=== PATIENT | male | born 1975 | race Caucasian/White ===

== ENCOUNTER 2016-11-07 08:35 | Emergency (ER) | payer OTHER ==
[~2016-11-07] VITALS: Ht 177.8 cm; Wt 96.9 kg
[2016-11-07 08:48] VITALS: TEMP 36.4; Ht 177.8 cm; Wt 96.9 kg
[2016-11-07] MEDS ORDERED: SODIUM CHLORIDE 0.9% 1000ML 1,000 ML IV STA (09:33)
[2016-11-07 09:34] LABS: BASO % 0.4 %; BASO ABS # 0.02 K/uL (0-0.2); COMPLETE YES; EOS % 4.1 %; IG% 0.4 %; LYMPH % 31.4 %; LYMPH ABS # 1.74 K/uL (1.2-3.4); MEAN CELL VOLUME 90.6 fL (80-100); MEAN CORPUSCULAR HEMOGLOBIN 32.3 pg (25-34); MEAN CORPUSCULAR HGB CONC 35.7 g/dl (32-36); MEAN PLATELET VOLUME 9.1 fL (7.4-10.4); MONO % 8.1 %; NEUT % 55.6 %; PLATELET COUNT 220 K/uL (130-400); RED BLOOD COUNT 5.08 M/uL (4.7-6.1); WHITE BLOOD COUNT 5.55 K/uL (4.8-10.8)
[2016-11-07 09:50] LABS: BUN/CREATININE RATIO 13.4 (10-20); CALCIUM 9.6 mg/dl (8.5-10.1); CREATININE 1.2 mg/dl (0.60-1.40); POTASSIUM 3.7 mmol/L (3.5-5.1)
[2016-11-07 09:53] LABS: ALB/GLOB RATIO 1.1 (0.9-2)
--- NOTE | 2016-11-07 10:05 | DIAGNOSTIC IMAGING REPORT ---
CHEST ONE VIEW PORTABLE HISTORY: epigastric pain, short of breath. COMPARISON: None. FINDINGS: The lungs are clear. Cardiac silhouette is normal in size. No pleural effusions. No pneumothorax. Postoperative changes within the right shoulder. IMPRESSION: No acute process. Electronically signed by: Steven Carrero M.D. 11/07/2016 10:03 AM Dictated Date/Time: 11/07/2016 10:02 AM
[2016-11-07 10:27] LABS: URINE APPEARANCE CLEAR (CLEAR); URINE BILIRUBIN NEG (NEG); URINE COLOR YELLOW; URINE NITRITE NEG (NEG); URINE PH 7.5 (4.5-7.5); URINE SPECIFIC GRAVITY 1.019 (1.000-1.030); UROBILINOGEN NEG (NEG); ZZUR CULT IF INDIC CLEAN CATCH NO
[2016-11-07 10:35] LABS: MANUAL MICROSCOPIC REQUIRED? NO; REVIEW REQ? NO
--- NOTE | 2016-11-07 10:51 | DIAGNOSTIC IMAGING REPORT ---
GALLBLADDER-ABD LIMITED CLINICAL HISTORY: 41 years-old Male presenting with epigastric and RUQ pain, eval GB. TECHNIQUE: Real-time grayscale and limited color Doppler ultrasound imaging of the abdomen limited to the right upper quadrant was performed. COMPARISON: None. FINDINGS: Pancreas: Visualized portions of the pancreatic head and body normal. Liver: Mildly hyperechogenic parenchyma, although the right hemidiaphragm remains visible, likely indicating mild steatosis. The liver measures 17.4 cm in maximal sagittal dimension. No sonographic evidence of hepatic mass. Main portal vein patent with normal directional flow. Biliary: No intrahepatic biliary ductal dilatation. Common bile duct measures up to 2 mm in diameter. Gallbladder: No evidence of gallstones, gallbladder wall thickening, gallbladder distention, or pericholecystic fluid or inflammatory change. Right kidney: Normal in appearance and size, measuring 9.8 cm. No hydronephrosis. Ascites: None. IMPRESSION: 1. No evidence of cholelithiasis or biliary duct dilatation. 2. Suggestion of mild hepatic steatosis. Electronically signed by: Federico Rodriguez M.D. 11/07/2016 10:49 AM Dictated Date/Time: 11/07/2016 10:48 AM
[2016-11-07] MEDS ORDERED: MoRPHine SULFATE 4 MG/ML 1 ML CARP\\VIAL IV STA (11:06)
--- NOTE | 2016-11-07 11:13 | EMERGENCY ROOM VISIT NOTE ---
History First contact with patient: 09:23 Chief Complaint: ABDOMINAL PAIN Stated Complaint: UPPER ABD PAIN GOING IN TO BACK Nursing Triage Summary: Pt presents with epigastric pain through to back. Denies n/v/d. Pt states pain began Wed night, has been constant and is worse when up walking around. History of Present Illness The patient is a 41 year old male who presents to the Emergency Room with complaints of epigastric pain that came on gradually 2 days ago. Patient states that the pain has been constant, is worse movement, better with rest, radiates into his back and occasionally up into his chest, currently rates as 3/ 10, states at its worse is 9/10. The pain as a sharp burning pain. The pain is not made better or worse with eating. He denies any associated nausea, vomiting, shortness of breath, dizziness or passing out, diarrhea or constipation, blood in stool, urinary complaints, fevers/chills or recent illness. He has never had this problem before. He has not tried any medications or the pain. Review of Systems A complete 10 point review of systems was reviewed with the patient with pertinent positives and negatives as per history of present illness. All else were negative. Past Medical/Surgical History No significant past medical or surgical history Family History Patient reports family history of gallbladder disease, heart disease, hypertension, diabetes Social History Smoking Status: Current Every Day Smoker Alcohol Use: occasionally Drug Use: none Occupation Status: employed Current/Historical Medications Scheduled Ranitidine (Zantac), 1 TAB PO BID Allergies Coded Allergies: Erythromycin (Unverified Allergy, Intermediate, SWELLING, HIVES, RASH, ) Physical Exam Vital Signs Date Time Temp Pulse Resp B/P (MAP) Pulse Ox O2 Delivery O2 Flow Rate FiO2 11/07/16 12:52 76 18 127/94 97 11/07/16 12:05 76 18 140/88 97 Room Air 11/07/16 11:24 72 18 136/93 Room Air 11/07/16 11:11 155/106 100 Room Air 11/07/16 10:57 18 135/98 99 Room Air 11/07/16 08:48 36.4 72 18 149/99 100 Room Air Physical Exam CONSTITUTIONAL: No acute distress. Nontoxic appearing. Well appearing and well nourished. Alert and oriented X 4 with normal affect. HEENT: Normocephalic, atraumatic. Pupils equal, round and reactive to light, EOMI. TMs normal. Pharynx normal. NECK: Supple, full active range of motion without discomfort. RESPIRATORY: Clear to auscultation bilaterally with no wheezing, crackles, rhonchi or stridor. Equal expansion bilaterally. CARDIOVASCULAR: Regular rate and rhythm with no murmurs, rubs or gallops. Normal peripheral perfusion. No edema. GASTROINTESTINAL: Moderate tenderness in the epigastric and right upper quadrant to palpation, no guarding, no rebound. Positive Hull's. Abdomen is otherwise soft, nontender and nondistended. Bowel sounds present in all quadrants. MUSCULOSKELETAL: Full range of motion of all joints without discomfort. INTEGUMENTARY: No rash or other significant dermatologic conditions noted. NEUROLOGIC: Cranial nerves II-XII grossly intact. No focal neurologic deficits noted. Medical Decision & Procedures ER Provider Diagnostic Interpretation: CHEST ONE VIEW PORTABLE HISTORY: epigastric pain, short of breath. COMPARISON: None. FINDINGS: The lungs are clear. Cardiac silhouette is normal in size. No pleural effusions. No pneumothorax. Postoperative changes within the right shoulder. IMPRESSION: No acute process. ----- GALLBLADDER-ABD LIMITED CLINICAL HISTORY: 41 years-old Male presenting with epigastric and RUQ pain, eval GB. TECHNIQUE: Real-time grayscale and limited color Doppler ultrasound imaging of the abdomen limited to the right upper quadrant was performed. COMPARISON: None. FINDINGS: Pancreas: Visualized portions of the pancreatic head and body normal. Liver: Mildly hyperechogenic parenchyma, although the right hemidiaphragm remains visible, likely indicating mild steatosis. The liver measures 17.4 cm in maximal sagittal dimension. No sonographic evidence of hepatic mass. Main portal vein patent with normal directional flow. Biliary: No intrahepatic biliary ductal dilatation. Common bile duct measures up to 2 mm in diameter. Gallbladder: No evidence of gallstones, gallbladder wall thickening, gallbladder distention, or pericholecystic fluid or inflammatory change. Right kidney: Normal in appearance and size, measuring 9.8 cm. No hydronephrosis. Ascites: None. IMPRESSION: 1. No evidence of cholelithiasis or biliary duct dilatation. 2. Suggestion of mild hepatic steatosis. Laboratory Results 11/07/16 09:18 Red Blood Count 5.08, Mean Corpuscular Volume 90.6, Mean Corpuscular Hemoglobin 32.3, Mean Corpuscular Hemoglobin Concent 35.7, Mean Platelet Volume 9.1, Neutrophils (%) (Auto) 55.6, Lymphocytes (%) (Auto) 31.4, Monocytes (%) (Auto) 8.1, Eosinophils (%) (Auto) 4.1, Basophils (%) (Auto) 0.4, Neutrophils # (Auto) 3.09, Lymphocytes # (Auto) 1.74, Monocytes # (Auto) 0.45, Eosinophils # (Auto) 0.23, Basophils # (Auto) 0.02 11/07/16 09:18 Test 11/07/16 09:18 11/07/16 10:00 White Blood Count 5.55 K/uL (4.8-10.8) Red Blood Count 5.08 M/uL (4.7-6.1) Hemoglobin 16.4 g/dL (14.0-18.0) Hematocrit 46.0 % (42-52) Mean Corpuscular Volume 90.6 fL (80-100) Mean Corpuscular Hemoglobin 32.3 pg (25-34) Mean Corpuscular Hemoglobin Concent 35.7 g/dl (32-36) Platelet Count 220 K/uL (130-400) Mean Platelet Volume 9.1 fL (7.4-10.4) Neutrophils (%) (Auto) 55.6 % Lymphocytes (%) (Auto) 31.4 % Monocytes (%) (Auto) 8.1 % Eosinophils (%) (Auto) 4.1 % Basophils (%) (Auto) 0.4 % Neutrophils # (Auto) 3.09 K/uL (1.4-6.5) Lymphocytes # (Auto) 1.74 K/uL (1.2-3.4) Monocytes # (Auto) 0.45 K/uL (0.11-0.59) Eosinophils # (Auto) 0.23 K/uL (0-0.5) Basophils # (Auto) 0.02 K/uL (0-0.2) RDW Standard Deviation 40.1 fL (36.4-46.3) RDW Coefficient of Variation 12.1 % (11.5-14.5) Immature Granulocyte % (Auto) 0.4 % Immature Granulocyte # (Auto) 0.02 K/uL (0.00-0.02) Anion Gap 7.0 mmol/L (3-11) Est Creatinine Clear Calc Drug Dose 95.6 ml/min Estimated GFR () 87.1 Estimated GFR (Non- 75.2 BUN/Creatinine Ratio 13.4 (10-20) Calcium Level 9.6 mg/dl (8.5-10.1) Total Bilirubin 0.4 mg/dl (0.2-1) Aspartate Amino Transf (AST/SGOT) 17 U/L (15-37) Alanine Aminotransferase (ALT/SGPT) 25 U/L (12-78) Alkaline Phosphatase 71 U/L (45-117) Troponin I < 0.015 ng/ml (0-0.045) Total Protein 8.1 gm/dl (6.4-8.2) Albumin 4.2 gm/dl (3.4-5.0) Globulin 3.9 gm/dl (2.5-4.0) Albumin/Globulin Ratio 1.1 (0.9-2) Lipase 171 U/L (73-393) Urine Color YELLOW Urine Appearance CLEAR (CLEAR) Urine pH 7.5 (4.5-7.5) Urine Specific Pound 1.019 (1.000-1.030) Urine Protein NEG (NEG) Urine Glucose (UA) NEG (NEG) Urine Ketones NEG (NEG) Urine Occult Blood NEG (NEG) Urine Nitrite NEG (NEG) Urine Bilirubin NEG (NEG) Urine Urobilinogen NEG (NEG) Urine Leukocyte Esterase NEG (NEG) Medications Administered Medications (Trade) Dose Ordered Sig/Brandy Route Start Time Stop Time Status Last Admin Dose Admin Sodium Chloride 1,000 ml @ 999 mls/hr Q1H1M STAT IV 11/07/16 09:33 11/07/16 10:33 DC 11/07/16 09:33 999 MLS/HR Morphine Sulfate (MoRPHine SULFATE INJ) 4 mg NOW STAT IV 11/07/16 11:06 11/07/16 11:07 DC 11/07/16 11:16 4 MG Ranitidine HCl (zANTac TAB) 150 mg NOW ONCE PO 11/07/16 12:30 11/07/16 12:31 DC 11/07/16 12:33 150 MG Medical Decision CC: Patient presenting with complaint of epigastric pain Interpretation of Labs: No leukocytosis, no anemia, no significant electrolyte abnormalities, normal renal function, normal liver enzymes and lipase, UA negative. Differential Diagnosis: Includes, but not limited to epigastric pain, gastritis , gastroenteritis, peptic ulcer disease, cholecystitis, cholelithiasis, pancreatitis, musculoskeletal pain/strain, among others. Medication Reconciliation: I attest that I have personally reviewed the patient' s current medication list. Vital signs review: I reviewed the patient's vital signs and interpret them as follows: T: Afebrile; BP: Hypertensive; HR: Within normal limits; RR: Within normal limits; Pulse Ox: Within normal limits on room air. Blood pressure screening: The patient was found to have an elevated blood pressure and was referred to their primary doctor for recheck and further treatment. Summary: Patient was evaluated at bedside, history of physical exam performed. Patient is alert and in no acute distress, nontoxic appearing, resting comfortably in the stretcher. Patient does have moderate tenderness of epigastric and right upper quadrant abdomen to palpation. No other concerning exam findings. Orders were placed at bedside for labs, UA, IV fluids for hydration, IV morphine for pain, right upper quadrant ultrasound to evaluate for gallbladder disease. Patient discussed with Dr. Woodson, who agrees with my assessment and plan. Labs reviewed as above, these are completely unremarkable. Negative troponin and normal EKG. Chest x-ray negative. Right upper quadrant ultrasound imaging revealed a normal gallbladder with no signs of acute disease. Patient reassessed multiple times throughout ED stay, he is improving after treatment. Given his negative workup today, I suspect his symptoms are most likely related to a gastritis versus peptic ulcer disease. I did give him a dose of ranitidine and Rx sent to pharmacy. The patient was instructed to follow up with his PCP for ongoing symptoms and possible need for endoscopy if his symptoms continue. Patient was also given return precautions should his symptoms worsen, he verbalized understanding. The patient was discharged home in stable condition and ambulatory. Impression Primary Impression: Epigastric abdominal pain Departure Information Dispostion Home / Self-Care Condition GOOD Prescriptions Ranitidine (Zantac) 150 Mg Tab 1 TAB PO BID for 30 Days, #60 TAB 0 Refills Prov: Gege Quiroz CRNP 11/07/16 Referrals No Doctor, Assigned (PCP) Patient Instructions ED Epigastric Pain [facility], ED PUD Vs Gastritis, [facility] Additional Instructions You have been treated in the Emergency Department your Abdominal Pain. Laboratory results and imaging studies have ruled out any emergent causes for your abdominal pain which would warrant admission or surgery. You have been prescribed ranitidine to be used for your stomach pain. This medication was sent to your pharmacy. Take as prescribed. Avoid NSAIDs, these include medications like aspirin, ibuprofen, Advil, Aleve, as these medications may make her stomach worse. Drink plenty of fluids and stay well hydrated. As with any trip to the Emergency Department, you should follow-up with your Primary Care Provider from today's visit. Return to the emergency department if your symptoms persist despite treatment plan outlined above or if the following symptoms occur: Severe worsening pain, fevers/chills, severe nausea/vomiting, vomiting blood, blood in your stool or urine, or any other concerns. Work Instructions Return To Work: 2 days
[2016-11-07] MEDS ORDERED: ZNTT/150 PO (12:22)
[2016-11-07] MEDS ORDERED: RANITIDINE HCL 150 MG TAB PO ONE (12:30)
[2016-11-07 12:52] VITALS: BP 127/94; PULSE 76; O2SAT 97
== END 2016-11-07 12:54 | disposition home or self-care (01) ==
LOC: C.EDB 08:37 → C.EDA 12:54
DX: R10.13 Epigastric pain (principal); F17.200 Nicotine dependence, unspecified, uncomplicated; Z88.3 Allergy status to other anti-infective agents